=== PATIENT | female | born 1960 | race Caucasian/White ===

== ENCOUNTER 2024-06-26 18:49 | Inpatient (IN) | payer OTHER ==
[2024-06-26 19:15] VITALS: BMI 33.8
[2024-06-26] MEDS ORDERED: CEFTRIAXONE 1 G/50 ML PREMIX 50 ML IVPB ONE (19:33)
[2024-06-26] MEDS ORDERED: NITROGLYCERIN SUBLINGUAL 1/150 0.4 MG TAB ONE ×2 (19:37→22:41)
[2024-06-26] MEDS ORDERED: NITROGLYCERIN 2% OINTMENT - 1GM PACKET TD ONE (19:38)
[2024-06-26 20:28] LABS: BASO % 0.3 % (0-2.0); EOS % 0.1 % (0-4.5); HEMATOCRIT 50.7 % (32.4-45.2); HEMOGLOBIN 16.9 GM/dL (10.7-15.3); LYMPH % 5.7 % (8-40); MCH 28.2 pg (25.7-33.7); MCHC 33.3 g/dl (32.0-36.0); MEAN CELL VOLUME 84.8 fl (80-96); MEAN PLT VOLUME 7.8 fl (7.5-11.1); MONO % 3.9 % (3.8-10.2); PLATELET COUNT 208 10^3/uL (134-434); RBC 5.98 M/mm3 (3.60-5.2); RDW 16.6 % (11.6-15.6); WHITE BLOOD COUNT 14.9 K/mm3 (4.0-10.0)
[2024-06-26 20:32] LABS: VENOUS O2 SATURATION 69.1 % (70-80); VENOUS PCO2 42.2 mmHg (38-52); VENOUS PH 7.362 (7.310-7.410)
[2024-06-26 20:47] LABS: INR 1.05 (0.83-1.09); PROTHROMBIN TIME (PATIENT) 11.4 SEC (9.7-13.0)
[2024-06-26 20:50] LABS: ACTIVATED PTT 29.1 SECONDS (25.2-36.5)
[2024-06-26] MEDS: NITROGLYCERIN SUBLINGUAL 1/150 0.4 MG TAB SL ONE ×2 (20:54→23:00)
[2024-06-26] MEDS: CEFTRIAXONE 1 GM in DEXTROSE 5%-WATER - 100 ML IVPB ONE (20:54)
[2024-06-26 21:04] LABS: CALCIUM 10.4 mg/dL (8.5-10.1)
[2024-06-26 21:06] LABS: BLOOD UREA NITROGEN 21.2 mg/dL (7-18)
[2024-06-26 21:09] LABS: CREATININE 1.4 mg/dL (0.55-1.3)
[2024-06-26 21:11] LABS: BILIRUBIN,TOTAL 0.8 mg/dL (0.2-1); TOT PROT 7.4 g/dl (6.4-8.2)
[2024-06-26] MEDS: NITROGLYCERIN 2% OINTMENT - 1GM PACKET TD ONE (21:14)
[2024-06-26] MEDS ORDERED: FUROSEMIDE 40 MG/4 ML INJECTABLE VIAL ONE (21:16)
[2024-06-26] MEDS ORDERED: AZITHROMYCIN IVPB 500 MG/250 ML BAG IVPB ONE (21:16)
[2024-06-26] MEDS: AZITHROMYCIN IVPB 500 MG in DEXTROSE 5%-WATER - 250 ML IVPB ONE (21:48)
[2024-06-26] MEDS: FUROSEMIDE 40 MG/4 ML INJECTABLE VIAL IVPUSH ONE (21:48)
[2024-06-26 21:58] LABS: EPI CELLS >36 /uL (0-25.1); HYALINE CASTS 1 /uL (0-3.1); PH,URINE 5.5 (5.0-8.0); URINE APPEARANCE CLEAR; URINE BACTERIA 50 /uL (0-1359); URINE BILIRUBIN NEGATIVE (NEGATIVE); URINE COLOR YELLOW; URINE GLUCOSE (UA) NEGATIVE (NEGATIVE); URINE KETONE NEGATIVE (NEGATIVE); URINE LEUK ESTERASE 1+ (NEGATIVE); URINE NITRITE NEGATIVE (NEGATIVE); URINE PROTEIN 2+ (NEGATIVE); URINE RBC 408 /uL (0-23.9); URINE UROBILINOGEN 0.2 mg/dL (0.2-1.0); URINE WBC 280 /uL (0-25.8)
[2024-06-26] MEDS ORDERED: ASPIRIN 81 MG CHEWABLE TABLETS ONE (22:43)
[2024-06-26] MEDS: ASPIRIN 81 MG CHEWABLE TABLETS PO ONE (23:00)
[2024-06-27 00:14] LABS: N-TERMINAL BNP 1630.9 pg/ml (5-125)
[2024-06-27] MEDS: FUROSEMIDE 40 MG/4 ML INJECTABLE VIAL IVPUSH SCH (00:33)
[2024-06-27] MEDS ORDERED: HEPARIN NA (PORCINE) 5,000 UNITS/ML 1ML VIAL SQ SCH (06:00)
[2024-06-27] MEDS ORDERED: FUROSEMIDE 40 MG/4 ML INJECTABLE VIAL ONE (08:03)
[2024-06-27 08:05] LABS: POTASSIUM 3.9 mmol/L (3.5-5.1)
[2024-06-27 08:06] LABS: ALBUMIN 3.7 g/dl (3.4-5.0); CALCIUM 10.2 mg/dL (8.5-10.1)
[2024-06-27 08:07] LABS: BLOOD UREA NITROGEN 21.2 mg/dL (7-18); MAGNESIUM 2.2 mg/dL (1.8-2.4)
[2024-06-27 08:09] LABS: BASO % 0.5 % (0-2.0); EOS % 0.7 % (0-4.5); HEMATOCRIT 49.8 % (32.4-45.2); HEMOGLOBIN 16.6 GM/dL (10.7-15.3); LYMPH % 11.7 % (8-40); MCH 28.4 pg (25.7-33.7); MCHC 33.3 g/dl (32.0-36.0); MEAN CELL VOLUME 85.4 fl (80-96); MEAN PLT VOLUME 8.2 fl (7.5-11.1); MONO % 7.3 % (3.8-10.2); NEUT % 79.8 % (42.8-82.8); PLATELET COUNT 203 10^3/uL (134-434); RBC 5.83 M/mm3 (3.60-5.2); RDW 16.2 % (11.6-15.6); WHITE BLOOD COUNT 10.9 K/mm3 (4.0-10.0)
[2024-06-27 08:11] LABS: CREATININE 1.3 mg/dL (0.55-1.3); PHOSPHOROUS 3.1 mg/dL (2.5-4.9)
[2024-06-27 08:16] LABS: N-TERMINAL BNP 2502.7 pg/ml (5-125)
[2024-06-27] MEDS ORDERED: ACETAMINOPHEN 325 MG TABLET (FP) ONE (08:18)
[2024-06-27] MEDS: ACETAMINOPHEN 325 MG TABLET (FP) PO PRN (08:28)
[2024-06-27] MEDS ORDERED: amLODIPine BESYLATE 5 MG TABLET (FP) ONE (16:28)
[2024-06-27] MEDS: amLODIPine BESYLATE 5 MG TABLET (FP) PO SCH (16:34)
[2024-06-27] MEDS ORDERED: hydrALAZINE HCL 20 MG/ML VIAL ONE (17:51)
[2024-06-27] MEDS: hydrALAZINE HCL 20 MG/ML VIAL IVPUSH ONE (18:05)
[2024-06-27] MEDS: ACETAMINOPHEN 1000 MG/100 ML BAG IVPB PRN (18:05)
[2024-06-27] MEDS ORDERED: ALBUTEROL SO4 2.5/IPRATROPIUM 0.5 INH SOL 3 ML VIAL.NEB. NEB SCH (20:00)
[2024-06-27] MEDS ORDERED: ALBUTEROL SO4 2.5/IPRATROPIUM 0.5 INH SOL 3 ML VIAL.NEB. NEB ONE (20:15)
[2024-06-27] MEDS: ALBUTEROL SO4 2.5/IPRATROPIUM 0.5 INH SOL 3 ML VIAL.NEB. NEB SCH (20:18)
[2024-06-27] MEDS: guaiFENesin/D-METHORPHAN TAB.ER.12H PO SCH (21:36)
[2024-06-28 02:17] VITALS: TEMP 98.7
[2024-06-28 07:29] LABS: HEMATOCRIT 48.9 % (32.4-45.2); HEMOGLOBIN 16.2 GM/dL (10.7-15.3); MCH 28.7 pg (25.7-33.7); MCHC 33.2 g/dl (32.0-36.0); MEAN CELL VOLUME 86.5 fl (80-96); MEAN PLT VOLUME 7.8 fl (7.5-11.1); PLATELET COUNT 188 10^3/uL (134-434); RBC 5.65 M/mm3 (3.60-5.2); RDW 16.8 % (11.6-15.6)
[2024-06-28 08:30] LABS: POTASSIUM 3.9 mmol/L (3.5-5.1)
[2024-06-28 08:32] LABS: CALCIUM 10.4 mg/dL (8.5-10.1)
[2024-06-28 08:34] LABS: ALBUMIN 3.5 g/dl (3.4-5.0); BLOOD UREA NITROGEN 22.6 mg/dL (7-18); MAGNESIUM 2.1 mg/dL (1.8-2.4)
[2024-06-28 08:36] LABS: CREATININE 1.3 mg/dL (0.55-1.3)
[2024-06-28 08:39] LABS: BILIRUBIN,TOTAL 0.9 mg/dL (0.2-1); TOT PROT 6.9 g/dl (6.4-8.2)
[2024-06-28] MEDS: amLODIPine BESYLATE 10 MG TABLET (FP) PO SCH (09:09)
[2024-06-28] MEDS: FUROSEMIDE 40 MG/4 ML INJECTABLE VIAL IVPUSH SCH (09:10)
[2024-06-28] MEDS ORDERED: amLODIPine BESYLATE 5 MG TABLET (FP) PO SCH (10:00)
[2024-06-28] MEDS: LOSARTAN POTASSIUM 50 MG TABLET PO SCH (10:56)
[2024-06-28 14:54] VITALS: BP 160/92; PULSE 77; RESP 20
== END 2024-06-28 18:45 | disposition home or self-care (01) | DRG 199 ==
LOC: JER 18:49 → JERBED 22:32 → J4W 06-28 05:49
PROVIDERS: ADMIT Internal Medicine; ATTEND Physician Assistant
DX: I16.0 Hypertensive urgency (principal); R31.29 Other microscopic hematuria; E83.52 Hypercalcemia; I71.20 Thoracic aortic aneurysm, without rupture, unspecified; I24.89 Other forms of acute ischemic heart disease; N20.0 Calculus of kidney; J81.0 Acute pulmonary edema; N28.1 Cyst of kidney, acquired
CPT/HCPCS: 0241U-QW; 36415; 71045-TC-FY; 71250-TC; 76604; 76775-TC; 80053; 81003; 82308; 82803; 83036; 83605; 83735; 83880; 84100; 84484; 85025; 85027; 85610; 85730; 87040; 87086; 93005; 93010; 93306-TC; 93308; 94640; 99285-25; J0131